=== PATIENT | male | born 1995 | race Hispanic/Latino ===

== ENCOUNTER 2019-09-23 23:01 | Emergency (ER) | payer OTHER ==
[2019-09-24] MEDS ORDERED: KETOROLAC TROMETHAMINE 60 MG/2 ML VIAL ONE (00:45)
[2019-09-24] MEDS ORDERED: TETANUS/DIPHTHERIA TOXOID [ADULT] 0.5 ML VIAL IM ONE (00:46)
== END 2019-09-24 01:27 | disposition home or self-care (01) ==
LOC: EDH 23:01
DX: S29.012A Strain of muscle and tendon of back wall of thorax, initial encounter (principal); S50.311A Abrasion of right elbow, initial encounter; S40.811A Abrasion of right upper arm, initial encounter; R10.9 Unspecified abdominal pain; R42 Dizziness and giddiness; V49.49XA Driver injured in collision with other motor vehicles in traffic accident, initial encounter; Y93.89 Activity, other specified; Y92.89 Other specified places as the place of occurrence of the external cause; Y99.8 Other external cause status
CPT/HCPCS: 71250; 74176; 90471; 90714; 96372; 99285; J1885